=== PATIENT | female | born 1940 | race Caucasian/White ===

== ENCOUNTER → 2023-12-01 12:45 | Outpatient (REF) | payer OTHER, SELFPAY | LOC: WDC 12:45 | PROVIDERS: ATTENDING PHYSICIAN Family Medicine | DX: Z12.31 Encounter for screening mammogram for malignant neoplasm of breast (principal) | CPT/HCPCS: 77063; 77067 ==

== ENCOUNTER → 2024-06-07 08:01 | Outpatient (REF) | payer OTHER, SELFPAY | LOC: RCS 08:01 | PROVIDERS: ATTENDING PHYSICIAN Internal Medicine; FAMILY PHYSICIAN Family Medicine; REFERRING PHYSICIAN Obstetrics & Gynecology Gynecologic Oncology | DX: I47.10 Supraventricular tachycardia, unspecified (principal); R00.2 Palpitations | CPT/HCPCS: 93225; 93226 ==

== ENCOUNTER 2024-10-10 10:33 | Inpatient (IN) | payer OTHER, SELFPAY ==
[2024-10-07 12:46] VITALS: BP 135/59
--- NOTE | 2024-10-07 16:44 | ED.GENMED ---
History of Present Illness
<Lisette Boyle PA-C - Last Filed: 10/07/24 22:28>
General
Chief Complaint: Back Pain
Source: patient
Exam Limitations: none
Time Seen by Provider: 10/07/24 16:42
Nursing documentation reviewed up to this point in time: agreed with
History of Present Illness
History of Present Illness:
83-year-old female with past medical history of ovarian cancer currently receiving chemotherapy, PE on Eliquis, presents emergency department today with 2 weeks of low back pain radiating into the buttocks and each leg. Patient reports that this
started 2 weeks ago and was sudden onset upon awakening in the morning. Patient reports over the past 2 weeks, she has had increasing difficulty with ambulating and reports that she can barely walk without severe pain. She is present in the ER
with her friend. She reports that she lives alone and she has story house and can barely take care of herself at home with her pain. She denies any recent falls or trauma to the area. She denies any chest pain or shortness of breath. She denies
any syncopal episodes. Denies any abdominal pain. She denies any fevers or chills, genital paresthesias, loss of bowel or bladder.
Review of Systems
<Lisette Boyle PA-C - Last Filed: 10/07/24 22:28>
Review of Systems
All Other Systems: ROS reviewed and negative except as documented in HPI and ROS
Phy Exam
<Lisette Boyle PA-C - Last Filed: 10/07/24 22:28>
Physical Exam
Physical Exam:
General: Patient is well appearing and in no acute distress; non-toxic
Skin: Warm and dry, no rashes or lesions
Head: Normocephalic, atraumatic
Eyes: Sclera non-icteric. EOMs intact.
Cardiac: Regular rate and rhythm, no murmurs
Peripheral Vascular: No lower extremity swelling or edema
Pulm: Normal respiratory effort
Abdomen: No abdominal tenderness to palpation
Musculoskeletal: No midline spinal tenderness to palpation. Patient unable to ambulate or sit up without significant pain. Minimal pain at rest. Positive straight leg raise bilaterally. Limited hip flexion bilaterally.
Neuro: CN II-XII intact, no focal neurologic deficits. Sensation intact bilaterally.
Psychiatric: Appropriate mood and affect.
Course
<Lisette Boyle PA-C - Last Filed: 10/07/24 22:28>
Orders/Labs/Results
Orders:
Orders
10/07/24 17:27
CT Lumbar Spine W/o Iv Contras Urgent
Comment:
Reason For Exam: low back pain, hx of ovariancancer, unable to walk
10/07/24 17:39
Acetaminophen [Tylenol] 1,000 mg PO NOW STA
10/07/24 20:48
Urinalysis Reflex To Culture Urgent
Date Specimen was Collected: 10/07/24
Time Specimen was Collected: 20:45
10/07/24 21:46
Complete Blood Count/With Diff Urgent
Comprehensive Metabolic Panel Urgent
10/07/24 21:56
Atorvastatin [Lipitor] 10 mg PO NOW STA
Gabapentin [Neurontin] 100 mg PO NOW STA
10/07/24 22:00
Apixaban [Eliquis] 5 mg PO BID
10/07/24 23:00
Atenolol [Tenormin] 25 mg PO ONCE ONE
10/08/24 08:00
Atenolol [Tenormin] 25 mg PO DAILY
Vital Signs
Initial and Last Documented VS:
Initial Vital Signs
Temp Pulse Resp BP Pulse Ox
98.2 F 65 16 135/59 100
10/07/24 12:46 10/07/24 12:46 10/07/24 12:46 10/07/24 12:46 10/07/24 12:46
Last Documented Vital Signs
Temp Pulse Resp BP Pulse Ox
98.2 F 59 18 125/46 96
10/07/24 12:46 10/07/24 19:04 10/07/24 19:04 10/07/24 19:04 10/07/24 19:04
<Shamar Dale, DO - Last Filed: 10/07/24 21:55>
Orders/Labs/Results
Orders:
Orders
10/07/24 17:27
CT Lumbar Spine W/o Iv Contras Urgent
Comment:
Reason For Exam: low back pain, hx of ovariancancer, unable to walk
10/07/24 17:39
Acetaminophen [Tylenol] 1,000 mg PO NOW STA
10/07/24 20:48
Urinalysis Reflex To Culture Urgent
Date Specimen was Collected: 10/07/24
Time Specimen was Collected: 20:45
10/07/24 21:46
Complete Blood Count/With Diff Urgent
Comprehensive Metabolic Panel Urgent
10/07/24 21:56
Atorvastatin [Lipitor] 10 mg PO NOW STA
Gabapentin [Neurontin] 100 mg PO NOW STA
10/07/24 22:00
Apixaban [Eliquis] 5 mg PO BID
10/07/24 23:00
Atenolol [Tenormin] 25 mg PO ONCE ONE
10/08/24 08:00
Atenolol [Tenormin] 25 mg PO DAILY
Vital Signs
Initial and Last Documented VS:
Initial Vital Signs
Temp Pulse Resp BP Pulse Ox
98.2 F 65 16 135/59 100
10/07/24 12:46 10/07/24 12:46 10/07/24 12:46 10/07/24 12:46 10/07/24 12:46
Last Documented Vital Signs
Temp Pulse Resp BP Pulse Ox
98.2 F 59 18 125/46 96
10/07/24 12:46 10/07/24 19:04 10/07/24 19:04 10/07/24 19:04 10/07/24 19:04
<Lisette Boyle PA-C - Last Filed: 10/07/24 22:28>
MDM/Problems Addressed
Differential Diagnosis Includes:
Bony metastasis, paralumbar sprain, compression fracture, degenerative disc disease, herniated nucleus pulposus
MDM/Problems Addressed:
83-year-old female presents emergency department today with lower back pain for the past 2 weeks. She history of ovarian cancer. She is unable to ambulate without significant pain. She states that this gotten to the point where she is unable to
take care of herself at home. She lives alone in a two-story house. Will admit for further pain control and PT eval and case management evaluation. Case discussed with hospitalist.
Chronic conditions affecting care:
ovarian cancer
<Lisette Boyle PA-C - Last Filed: 10/07/24 22:28>
*Pulse Oximetry
Patient hypoxic: no
*Critical Care Note
Total Time (30-74mins, 75-104mins- exclusive of procedures): Not Applicable
Data Reviewed
Review of Other/Old Records Reveals: Records (no previous ER physician documentation or discharge summaries to review )
Source: patient and records
Prescriptions/Medications Considered But Not Given:
n/a
<Lisette Boyle PA-C - Last Filed: 10/07/24 22:28>
Patient Management
Escalation/DeEscalation of care consider admission/obs:
patient referred for admission
ED Attending Note
<Lisette Boyle PA-C - Last Filed: 10/07/24 22:28>
-
Portions of this chart may have been created with voice recognition software.� Occasional wrong word or��sound alike� substitutions may have occurred due to the inherent limitations of voice recognition software.
<Shamar Dale DO - Last Filed: 10/07/24 21:55>
ED Attending Note
Patient seen and examined by attending physician: Yes
I performed the substantive portion of visit, reviewed & personally made and approve the management plan that is documented in note by myself or CHERELLE.: Yes
ED Attending Note:
83-year-old female presents with low back pain. Patient has had spine surgery in the past. States she just developed about 2 weeks ago and worsened. Today she could not really get out of bed. She does report chronic neuropathy in her lower
extremities but feels like it is worse. Patient denies bladder or urinary incontinence. She denies any anesthesia to the pelvic area. She does report some pain into her buttocks. She also reports pain down into the left leg is little worse. No
fevers. No vomiting. Exam: Awake and alert, normal bilateral lower extremity perfusion. No edema. Able to lift both legs off the bed. Normal gross sensation to palpation. Assessment and plan: Unable to walk in the emergency department. CT
shows chronic degenerative changes. Check basic labs and admit. Likely will need rehab. Patient lives alone and is unsafe to be at home as she is unable to walk. May need MRI. No clinical concern for cauda equina syndrome during my evaluation
Discharge Plan
Departure
Patient Disposition: Admit
Date of Disposition: 10/07/24
Time of Disposition: 22:28
Admit to: Med/Surg
Presentation/result/management discussed w/ accepting MD/DO: Hospitalist
Patient with high blood pressure during this ER visit?: Yes
Discharge Problem:
Ambulatory dysfunction, Low back pain
Prescriptions:
No Action
multivitamin Tablet
1 tab PO DAILY
atorvastatin 10 mg Tablet
10 mg PO DAILY
atenolol 25 mg Tablet
25 mg PO DAILY
calcium carbonate-vitamin D3 [Calcium + D] 600 mg-5 mcg (200 unit) Tablet
1 tab PO DAILY
tramadol 50 mg Tablet
50 mg PO Q8 PRN (Reason: pain)
digoxin 125 mcg (0.125 mg) Tablet
125 mcg PO QMWF
gabapentin 100 mg Capsule
100 mg PO BID
Vitamin B-6 50 mg Capsule
50 mg PO DAILY
Eliquis 5 mg Tablet
5 mg PO BID
Referrals:
Lina Cabrera MD [Family Provider] -
Interventions
Interventions:
*Risk Screen - Suicide Last Done: 10/07/24 12:46
*General Assessment Last Done: 10/07/24 12:46
*Neglect/Abuse Screening Last Done: 10/07/24 12:46
ED- Fall Risk Assessment Last Done: 10/07/24 17:45
*ED COVID-19 Vaccine History Last Done: 10/07/24 12:46
ED-Musculoskeletal Assessment Last Done: 10/07/24 17:45
Discharge Date and Time
Print Language: CROATIAN
[2024-10-07] MEDS: TYLENOL 1000 MG PO (17:45)
[2024-10-07 19:04] VITALS: BP 125/46
[2024-10-07 21:13] LABS: Urine Albumin Negative (Neg - Trace); Urine Bilirubin Negative (Negative); Urine Character Clear (Clear); Urine Color Yellow; Urine Glucose Negative (Negative); Urine Ketone Negative (Negative); Urine Leukocyte Negative (Negative); Urine Nitrite Negative (Negative); Urine Occult Blood Negative (Negative); Urine Urobilinogen Negative (Neg - 1+)
[2024-10-07 22:38] VITALS: BP 153/56
[2024-10-07] MEDS: NEURONTIN 100 MG PO ×2 (22:39→22:49)
[2024-10-07] MEDS: LIPITOR 10 MG PO (22:39)
[2024-10-07] MEDS: TENORMIN 25 MG PO (22:40)
[2024-10-07] MEDS: ELIQUIS 5 MG PO (22:40)
--- NOTE | 2024-10-07 23:39 | HPS.HSE ---
Family Physician
-
Family Physician: Lina Cabrera MD
Chief Complaint
-
Acute episode of back pain x 2 weeks
History of Present Illness
This is a 83-year-old female with past medical history significant for metastatic ovarian cancer status post of surgical resection of left ovary and radiation, status post of chemo now temporarily of chemotherapy who presents to the emergency
department with dull worsening lower back pain.
Patient reported sudden onset of back pain upon arousal from sleep 2 weeks ago. Initially she was able to tolerate the pain. She reports that it is localized to the low back just above the hips bilaterally. She denies any radiation down the legs.
She denies any incontinence of the bladder or bowel. She denies any urinary symptoms otherwise such as dysuria or frequency.
Patient denies any antecedent trauma.
Patient reports pain worse with standing and ambulation. Occasionally she can find a sitting position that does reduce the pain. Due to the number of stairs in the house she has difficulty ambulating. The patient stated that the pain became
intolerable enough today that she did come to the hospital. It is associated with the worsening of her neuropathy and she reports radiation of neuropathic pain up the left calf. She denies any lower extremity swelling.
In the emergency department she was afebrile, blood pressure was 150/50 with a pulse of 50 and satting 95% on room air. Patient had a CT of the lumbar spine which showed an age-indeterminate mild L5 compression fracture which was new compared to
prior (2021). Labs pending.
Medical History
Past Medical History
Past Medical History: Reports None, Asthma, Cancer (ovarian cancer), HTN and Hypercholesterolemia
Past Surgical History: Reports Gynocological (Ovarian cancer removed on left ovary 12/2021 ), Orthopedic (back surgery ) and Tonsilectomy
Social History
Tobacco: Non-smoker
Alcohol: None
Drug: None
Personal: Single
Living: Alone
Employment: Retired
Family History
Family History: Not pertinent
Allergies / Home Medications
Allergies reflects when Allergies were last updated in [employer].
Home Medications with original date entered in [employer]
Allergy/Medication List:
Allergies
Allergy/AdvReac Type Severity Reaction Status Date / Time
No Known Allergies Allergy Verified 10/07/24 22:45
Home Medications
apixaban 5 mg tablet (Eliquis) 5 mg PO BID 10/07/24
atenolol 25 mg tablet 25 mg PO DAILY 10/07/24
atorvastatin 10 mg tablet 10 mg PO DAILY 10/07/24
calcium 600 mg (as carbonate)-vitamin D3 5 mcg (200 unit) tablet 1 tab PO DAILY 10/07/24
digoxin 125 mcg (0.125 mg) tablet 125 mcg PO QMWF 10/07/24
gabapentin 100 mg capsule 200 mg PO BID 10/07/24
multivitamin 1 tab PO DAILY 10/07/24
pyridoxine (vitamin B6) 50 mg capsule (Vitamin B-6) 50 mg PO DAILY 10/07/24
tramadol 50 mg tablet 50 mg PO Q8 PRN pain 10/07/24
Review of Systems
-
History Source: Patient
Constitutional: Reports No Symptoms
EENT: Reports No Symptoms
Respiratory: Reports No Symptoms
Cardiac: Reports No Symptoms
Abdomen/GI: Reports No Symptoms
: Reports No Symptoms
Musculoskeletal: Reports Joint Pain
Skin: Reports No Symptoms
Neurological: Reports No Symptoms
Endocrine: Reports No Symptoms
Hematologic/Lymphatic: Reports No Symptoms
Psych: Reports No Symptoms
Physical Exam
Vital Signs
Vital Signs
Temp Pulse Resp BP Pulse Ox
97.8 F 58 18 153/56 95
10/07/24 22:38 10/07/24 22:38 10/07/24 19:04 10/07/24 22:38 10/07/24 22:38
Physical Exam
General: Well Developed, Well Nourished and No Apparent Distress
HEENT: NormoCephalic, Anicteric and Moist mucous membranes
Respiratory: Clear
Cardiac: S1/S2 and Regular Rhythm
Breast: Deferred by me
GI: Soft, Non Tender, Non Distended and Normal Bowel Sounds
Genito-urinary: Deferred by me
Musculoskeletal: No Clubbing, No Cyanosis, No Edema and Other (back pain on straight leg raise on right but no radiation); No Normal Gait & Station
Skin: Warm
Neuro: AO x 3 and Nonfocal/grossly intact
Hematologic/Lymphatic: No Lymphadenopathy
Psych: Calm
Data Reviewed
-
CT Scan: Report Reviewed by me
Lab Data: Labs Reviewed by me
Old Records: Reviewed
Impression/Plan
-
IMPRESSION:
83-year-old with past medical history of metastatic ovarian cancer status post ovarian surgery, radiation and chemotherapy with resultant peripheral neuropathy, atrial fibrillation on apixaban, hypertension, hyperlipidemia, presenting to the
emergency department with back pain and worsening peripheral neuropathy. Found to have a subacute mild L5 compression fracture. No trauma.
PLAN:
1. Back pain - MSK back pain. No sciatica. No alarm signs. Ambulatory difficulties at home as she lives alone and has to go up 2 flights of stairs
- admit to med/surg observation
- analgesics - starting with tylenol RTC, prn tramadol and iv dilaudid for severe pain
- topical lidocaine, flexeril for spams
- PT evaluation and possible SNF/Rehab
2. AFIB
- continue atenolol and digoxin
- continue apixaban
3. Neuropahty
- coninue B6 and gabapentin
DVT PPX - on apixaban
Code status - DNR
[2024-10-08] VITALS (7 sets, daily range): BP systolic 121–144; BP diastolic 54–74; PULSE 59; O2SAT 97; BMI 26.5; BMI 25.2
[2024-10-08] MEDS: TYLENOL 650 MG PO ×3 (00:28→12:18)
[2024-10-08] MEDS: LIDOCAINE 4% PATCH 1 PATCH TOPICAL (01:59)
[2024-10-08 02:15] LABS: % Basophils 0.5 % (0-2); % Eosinophils 1.3 % (0-6); % Immature Granulocytes 1.3 % (0-0.5); % Lymphocytes 13.8 % (20.5-51.1); % Neutrophils 72.1 % (42.2-75.2); Absolute Eosinophils 0.1 10^3/uL (0-0.7); Absolute Immature Granulocytes 0.1 10^3/uL (0-0.05); Absolute Lymphocytes 0.6 10^3/uL (1.2-3.4); Absolute Monocytes 0.4 10^3/uL (0.1-0.6); Absolute Neutrophils 2.9 10^3/uL (1.4-6.5); Hematocrit 27.8 % (37.0-47.0); Hemoglobin 9.1 g/dL (12.0-16.0); Mean Corp Hgb Conc. 32.7 g/dL (33.0-37.0); Mean Corpuscular Hgb 33.6 pg (27.0-31.0); Mean Corpuscular Volume 102.6 fL (81.0-99.0); Mean Platelet Volume 8.9 fL (7.4-10.4); Nucleated Red Blood Cells % 0 %; Platelet Count 187 10^3/uL (130-400); Red Blood Cell Count 2.71 10^6/uL (4.20-5.40); Red Cell Dist. Width 13.9 % (11.5-14.5)
[2024-10-08 02:21] LABS: ALT (SGPT) 14 U/L (0-35); AST (SGOT) 16 U/L (14-36); Albumin 3.1 g/dl (3.5-5.0); Alkaline Phosphatase 125 U/L (38-126); Blood Urea Nitrogen 12 mg/dl (7-17); Calcium 8.6 mg/dl (8.4-10.2); Carbon Dioxide 30 mmol/L (22-30); Chloride 103 mmol/L (98-107); Estimated Creatinine Clearance 58 ml/min; Glucose 106 mg/dl (70-99); Potassium 3.9 mmol/L (3.5-5.1); Sodium 136 mmol/L (135-145); Total Protein 5.5 g/dl (6.3-8.2); eGFR > 60.00
[2024-10-08] MEDS: TENORMIN 25 MG PO (08:08)
[2024-10-08] MEDS: OSCAL 500 + D 500 MG PO (08:10)
[2024-10-08] MEDS: THERAGRAN 1 TABLET PO (08:10)
[2024-10-08] MEDS: ELIQUIS 5 MG PO ×2 (08:10→21:51)
[2024-10-08] MEDS: LIPITOR 10 MG PO (08:11)
[2024-10-08] MEDS: NEURONTIN 200 MG PO ×3 (08:11→23:23)
[2024-10-08 11:28] LABS: Iron 56 ug/dl (37-170)
[2024-10-08 11:36] LABS: Percent Saturation 29 % (20-50); Total Iron Binding Capacity 191 ug/dl (265-497)
[2024-10-08 12:17] LABS: Vitamin B12 275 pg/ml (239-931)
--- NOTE | 2024-10-08 15:20 | W.PN.HOSP.TC ---
Today's Communication/Plan
-
Pain control
PT OT
Change Gabapentin to 200 mg Q8H
Assessment / Plan
Assessment / Plan
83-year-old female with back pain. Patient has a history of ovarian cancer receiving chemotherapy pain has been ongoing for about 2 weeks but got worse. No trauma. Patient was diagnosed
CT of the lumbar azceg-hkw-ihqyrifvlwtua L5 compression fracture. Mild lumbar spinal levoscoliosis. L2/3 subluxation. Multilevel DJD. Progression of canal stenosis L5/S1. New moderate left hydronephrosis and new moderate left hydroureter
secondary to compressing left pelvic cystic mass.
Awake alert oriented
Cardiovascular system S1-S2 appreciated
No point tenderness in the spine pain mostly in the lower lumbar/sacral area
# Back pain-acute on chronic
Pain control
Patient was on tramadol 50 mg every 8h and gabapentin 200 mg p.o. twice daily as outpatient, Tylenol, lidocaine patch
# New moderate left hydroureter and left hydronephrosis
Likely secondary to malignancy related obstruction
Patient states that she had a CAT scan on August 13, 2024.
She has seen Dr. Trevino and since her kidney function was okay he did not want any further interventions for this.
# Metastatic ovarian cancer. She follows up with Dr. Molina at [place]
Urgently diagnosed in 2021 had hysterectomy and 6 cycles of chemo. She was deemed 'cancer free' in 2022. Recurrence December 2023, chemotherapy and radiation were started. Last chemotherapy was in August 2024. Now she is not on treatment
currently.
# Anemia -likely related to malignancy
# hypertension-continue atenolol
# Hyperlipidemia-continue statin
# History of PE-continue Eliquis
# Hiatal hernia
# Cholelithiasis
# DVT prophylaxis-Eliquis
# DNR per patient preference
I made patient aware that she should keep all her care in one system for best care. We do not have any of her records and she does not have [employer] on her phone from [employer]. Will try and get records from [place], Dr. Trevino and Dr. Braga.
Anticipated Discharge: 24 - 48 hours
Subjective/Interval History
-
Date of Service: October 08, 2024
Objective Data
-
Vital Signs:
Vital Signs
Temp Pulse Resp BP Pulse Ox
98.2 F 54 16 134/54 97
10/08/24 07:15 10/08/24 08:08 10/08/24 07:15 10/08/24 08:08 10/08/24 08:30
[2024-10-08] MEDS: TYLENOL 1000 MG PO ×2 (16:44→23:24)
[2024-10-08] MEDS: LIDOCAINE 4% PATCH TOPICAL (21:51)
[2024-10-09] MEDS: ULTRAM 50 MG PO (05:25)
[2024-10-09 05:36] LABS: Hematocrit 28.2 % (37.0-47.0); Mean Corp Hgb Conc. 31.9 g/dL (33.0-37.0); Mean Corpuscular Hgb 33.2 pg (27.0-31.0); Mean Corpuscular Volume 104.1 fL (81.0-99.0); Mean Platelet Volume 8.8 fL (7.4-10.4); Platelet Count 177 10^3/uL (130-400); Red Blood Cell Count 2.71 10^6/uL (4.20-5.40); Red Cell Dist. Width 13.8 % (11.5-14.5); White Blood Cell Count 4.3 10^3/uL (4.8-10.8)
[2024-10-09 06:00] LABS: Blood Urea Nitrogen 18 mg/dl (7-17); Carbon Dioxide 28 mmol/L (22-30); Chloride 104 mmol/L (98-107); Estimated Creatinine Clearance 58 ml/min; Glucose 102 mg/dl (70-99); Sodium 139 mmol/L (135-145); eGFR > 60.00
[2024-10-09] MEDS: NEURONTIN 200 MG PO ×3 (07:37→23:01)
[2024-10-09] MEDS: ELIQUIS 5 MG PO ×2 (07:37→20:04)
[2024-10-09] MEDS: LIPITOR 10 MG PO (07:37)
[2024-10-09] MEDS: TENORMIN 25 MG PO (07:38)
[2024-10-09] MEDS: TYLENOL 1000 MG PO ×3 (07:38→23:02)
[2024-10-09] MEDS: VITAMIN B-12 1000 MCG PO (07:38)
[2024-10-09] MEDS: OSCAL 500 + D 500 MG PO (07:38)
[2024-10-09] MEDS: THERAGRAN 1 TABLET PO (07:38)
[2024-10-09 07:40] VITALS: BP 128/53
[2024-10-09] MEDS: LANOXIN 125 MCG PO (07:41)
[2024-10-09] MEDS: LIDOCAINE 4% PATCH 1 PATCH TOPICAL (08:35)
--- NOTE | 2024-10-09 13:05 | CM ---
Addend[facility] 10/09/24 15:01:
Call from friend who is bedside/Alexandria Lilly
Reviewed PAC with pt and requesting referrals to [facility] and [facility]
Aware limited SNF bed availability recently, in agreement to expand SNF bed search
PASRR completed and referrals sent via [facility]
Addendum [facility] 10/09/24 13:21:
KATZ verbally reviewed- copy provided
Original Note:
CM met with pt bedside
Pt noting pain and nausea and limited conversation
Per PT eval, pt resides alone in a 2SH home, uncertain of BEN
Eval noted 1 step up/down throughout home
Pt is typically indep with her ADLs with ADs
She has a cane and WW for use as needed
Pt noted she current outpt chemo/cancer treatments at this time
PCP- Lina Cabrera
Rx- [facility]
Pt eval with [facility]N vs SNF recs however pt noted to a 1 assist and ambulation limited in assessment
Pt requesting SNF be arranged on dc
PAC left bedside- pt will review and follow up with CM on SNF choices
OT eval requested
Discharge Disposition- SNF pending auth
[2024-10-09] MEDS: ZOFRAN 4 MG IV (13:06)
[2024-10-09] MEDS: ANTIVERT 25 MG PO (15:24)
[2024-10-09] MEDS: COMPAZINE 5 MG IV (15:24)
[2024-10-09 15:30] VITALS: BP 147/73
--- NOTE | 2024-10-09 15:54 | W.PN.HOSP.TC ---
Today's Communication/Plan
-
Case management to look for a rehab
Assessment / Plan
Assessment / Plan
83-year-old female with back pain. Patient has a history of ovarian cancer receiving chemotherapy pain has been ongoing for about 2 weeks but got worse. No trauma. Patient was diagnosed
CT of the lumbar pilvt-aps-yjijjubesepwa L5 compression fracture. Mild lumbar spinal levoscoliosis. L2/3 subluxation. Multilevel DJD. Progression of canal stenosis L5/S1. New moderate left hydronephrosis and new moderate left hydroureter
secondary to compressing left pelvic cystic mass.
Awake alert oriented
Cardiovascular system S1-S2 appreciated
No point tenderness in the spine pain mostly in the lower lumbar/sacral area
# Back pain-acute on chronic
Pain control
Patient was on tramadol 50 mg every 8h and gabapentin 200 mg p.o. twice daily as outpatient, Tylenol, lidocaine patch
Patient had slight dizziness and nausea which she is not sure if secondary to tramadol therefore does not want to take. She is also skeptical about opiates. Tramadol discontinued
Her pain is mostly in the sacrococcygeal area also
Get MRI of the lumbar spine including sacrum and coccyx requested
I spoke to Dr. Molina who is her oncologist-he stated that she had a CT of the abdomen and pelvis she does have some presacral area disease but has been stable. [place] nephrosis is stable. CT was on August 15, 2025. He saw her on August 27,
2024.
# New moderate left hydroureter and left hydronephrosis
Likely secondary to malignancy related obstruction
Patient states that she had a CAT scan on August 13, 2024.
She has seen Dr. Trevino and since her kidney function was okay he did not want any further interventions for this.
Text message to Dr. Trevino who confirms that the hydronephrosis is not new and as long as the creatinine is stable no further interventions.
# Nausea/vertigo-as needed Compazine and meclizine
# Metastatic ovarian cancer. She follows up with Dr. Molina at [place]
Urgently diagnosed in 2021 had hysterectomy and 6 cycles of chemo. She was deemed 'cancer free' in 2022. Recurrence December 2023, chemotherapy and radiation were started. Last chemotherapy was in August 2024. Now she is not on treatment
currently.
# Anemia -likely related to malignancy
# hypertension-continue atenolol
# Hyperlipidemia-continue statin
# History of PE-continue Eliquis
# Hiatal hernia
# Cholelithiasis
# DVT prophylaxis-Eliquis
# DNR per patient preference
I made patient aware that she should keep all her care in one system for best care. We do not have any of her records and she does not have [employer] on her phone from [employer]. Will try and get records from [place], Dr. Trevino and Dr. Braga.
Dr. Molina said that he will fax me his notes and CAT scan I still have not received it.
Discussed with patient's friend at bedside who is her advocate.
Discussed with nursing at bedside
time spent over 50 min
Anticipated Discharge: Within 24 hours
Subjective/Interval History
-
Date of Service: October 09, 2024
Objective Data
-
Labs:
Laboratory Results
10/09/24
05:21
WBC 4.3 L
Hgb 9.0 L
Hct 28.2 L
Plt Count 177
Sodium 139
Potassium 4.0
Chloride 104
Carbon Dioxide 28
BUN 18 H
Creatinine 0.7
Glucose 102 H
Calcium 8.0 L
Vital Signs:
Vital Signs
Temp Pulse Resp BP Pulse Ox
97.3 F 66 16 128/53 93
10/09/24 07:40 10/09/24 07:41 10/09/24 07:40 10/09/24 07:40 10/09/24 12:35
I&O
10/08/24 10/09/24 10/10/24
06:59 06:59 06:59
Intake Total 840 / 840
Balance 840 / 840
--- NOTE | 2024-10-09 16:18 | PTCARENOTE ---
Patient with complaints of 'head spinning' and nausea. Given Zofran without relief. MD contacted. Meclizine and Compazine given as ordered. Patient states that nausea and head issue feel slightly better. EKG completed. MRI of spine pending.
[2024-10-09 23:56] VITALS: BP 138/65
[2024-10-10 05:43] LABS: Hematocrit 30.2 % (37.0-47.0); Hemoglobin 9.5 g/dL (12.0-16.0); Mean Corp Hgb Conc. 31.5 g/dL (33.0-37.0); Mean Corpuscular Hgb 33.1 pg (27.0-31.0); Mean Corpuscular Volume 105.2 fL (81.0-99.0); Mean Platelet Volume 8.9 fL (7.4-10.4); Platelet Count 206 10^3/uL (130-400); Red Blood Cell Count 2.87 10^6/uL (4.20-5.40); Red Cell Dist. Width 13.5 % (11.5-14.5); White Blood Cell Count 3.9 10^3/uL (4.8-10.8)
[2024-10-10 05:59] LABS: Blood Urea Nitrogen 18 mg/dl (7-17); Calcium 8.5 mg/dl (8.4-10.2); Carbon Dioxide 30 mmol/L (22-30); Chloride 102 mmol/L (98-107); Estimated Creatinine Clearance 51 ml/min; Glucose 88 mg/dl (70-99); Potassium 4.2 mmol/L (3.5-5.1); Sodium 138 mmol/L (135-145); eGFR > 60.00
[2024-10-10 07:45] VITALS: BP 120/49
[2024-10-10] MEDS: LIDOCAINE 4% PATCH 1 PATCH TOPICAL (07:47)
[2024-10-10] MEDS: LIPITOR 10 MG PO (07:48)
[2024-10-10] MEDS: ELIQUIS 5 MG PO ×2 (07:49→21:38)
[2024-10-10] MEDS: THERAGRAN 1 TABLET PO (07:49)
[2024-10-10] MEDS: TYLENOL 1000 MG PO ×3 (07:49→23:47)
[2024-10-10] MEDS: OSCAL 500 + D 500 MG PO (07:49)
[2024-10-10] MEDS: TENORMIN 25 MG PO (07:49)
[2024-10-10] MEDS: NEURONTIN 200 MG PO ×3 (07:49→23:47)
[2024-10-10] MEDS: VITAMIN B-12 1000 MCG PO (07:49)
[2024-10-10 11:34] VITALS: BP 114/68; BP 121/66; PULSE 97; O2SAT 97
--- NOTE | 2024-10-10 12:41 | CM ---
Addendum entered by Maria Elena Ruiz 10/10/24 15:35:
CM reviewed SNF referrals w/ pt at bedside. CM reviewed facilities that are willing to accept her and facilities that do not have any bed availability today. Pt had preferences for [facility], [facility], [facility] or [facility]. CM informed that those facilities
do not have any bed availability today and if she is willing to explore some other facilities that have accepted her.
Pt asked about [facility]. CM spoke w/ Kamini in admissions and was informed facility is full and no beds are available today.
Pt became agreeable to [facility]- Per [facility]/admissions, there are no beds until tomorrow
Per [facility] admissions, may have a bed available tomorrow
Pt will need insurance auth
Plan: SNF (prefers [facility]); pending confirmation of bed tomorrow and auth
Original Note:
Pt LOC changed to IP today
[2024-10-10 15:35] VITALS: BP 113/71
--- NOTE | 2024-10-10 15:40 | W.PN.HOSP.TC ---
Today's Communication/Plan
-
Medically stable for discharge to rehab
Assessment / Plan
Assessment / Plan
83-year-old female with back pain. Patient has a history of ovarian cancer receiving chemotherapy pain has been ongoing for about 2 weeks but got worse. No trauma. Patient was diagnosed
CT of the lumbar umidf-wzj-znpxhhdoqzxsp L5 compression fracture. Mild lumbar spinal levoscoliosis. L2/3 subluxation. Multilevel DJD. Progression of canal stenosis L5/S1. New moderate left hydronephrosis and new moderate left hydroureter
secondary to compressing left pelvic cystic mass.
Awake alert oriented
Cardiovascular system S1-S2 appreciated
point tenderness in the spine pain mostly in the lower lumbar/sacral area
No neurodeficits

MRI
-1. SEVERE ACUTE BILATERAL SACRAL INSUFFICIENCY FRACTURES surrounded by severe bone marrow edema.
2. ACUTE INFERIOR ENDPLATE FRACTURE of L5 with mild to moderate loss of vertebral body height.
3. SEVERE CENTRAL CANAL STENOSIS at L4/L5 and L5/S1 which has increased at both levels since 12/12/2020.
4. SEVERE 1.8 cm LEFT LATERAL LISTHESIS of L2 on L3 and severe discogenic degenerative disease at L2/L3 which appears unchanged.
5. SEVERE LEFT HYDROURETERONEPHROSIS secondary to a large 7.8 cm obstructing cystic mass in the left side of the pelvis (probably LEFT OVARIAN CANCER).
6. Large amount of edema in the posterior lower lumbar paraspinal muscles and in the parapelvic muscles around the acute sacral fractures.
7. Previous bilateral posterior osseous fusion in throughout the thoracic spine.

# Back pain-acute on chronic secondary to sacral insufficiency fracture, L5 fracture, canal stenosis L5-S1 and L4-L5 and also DDD L2-L3
Discussed this with patient and friends at bedside
Pain control
Patient was on tramadol 50 mg every 8h and gabapentin 200 mg p.o. twice daily as outpatient, Tylenol, lidocaine patch
Patient had slight dizziness and nausea which she is not sure if secondary to tramadol therefore does not want to take. She is also skeptical about opiates. Tramadol discontinued
Her pain is mostly in the sacrococcygeal area also
I spoke to Dr. Molina who is her oncologist-he stated that she had a CT of the abdomen and pelvis she does have some presacral area disease but has been stable. [place] nephrosis is stable. CT was on August 15, 2025. He saw her on August 27,
2024.
# New moderate left hydroureter and left hydronephrosis
Likely secondary to malignancy related obstruction
Patient states that she had a CAT scan on August 13, 2024.
She has seen Dr. Trevino and since her kidney function was okay he did not want any further interventions for this.
Text message to Dr. Trevino who confirms that the hydronephrosis is not new and as long as the creatinine is stable no further interventions.
# Nausea/vertigo-as needed Compazine and meclizine. Symptoms resolved. She is not sure if it was from tramadol. Tramadol was discontinued
# Metastatic ovarian cancer. She follows up with Dr. Molina at [place]
Urgently diagnosed in 2021 had hysterectomy and 6 cycles of chemo. She was deemed 'cancer free' in 2022. Recurrence December 2023, chemotherapy and radiation were started. Last chemotherapy was in August 2024. Now she is not on treatment
currently.
# Anemia -likely related to malignancy
# hypertension-continue atenolol
# Hyperlipidemia-continue statin
# History of PE-continue Eliquis
# Hiatal hernia
# Cholelithiasis
# DVT prophylaxis-Eliquis
# DNR per patient preference
I made patient aware that she should keep all her care in one system for best care. We do not have any of her records and she does not have [employer] on her phone from [employer]. Will try and get records from [place], Dr. Trevino and Dr. Braga.
Dr. Molina said that he will fax me his notes and CAT scan I still have not received it.
Discussed with patient's friend at bedside who is her advocate.
Discussed with nursing at bedside
Discussed with case management
time spent over 50 min
Anticipated Discharge: Within 24 hours
Subjective/Interval History
-
Date of Service: October 10, 2024
Objective Data
-
Labs:
Laboratory Results
10/10/24
04:53
WBC 3.9 L
Hgb 9.5 L
Hct 30.2 L
Plt Count 206
Sodium 138
Potassium 4.2
Chloride 102
Carbon Dioxide 30
BUN 18 H
Creatinine 0.8
Glucose 88
Calcium 8.5
Vital Signs:
Vital Signs
Temp Pulse Resp BP Pulse Ox
98.5 F 59 16 120/49 94
10/10/24 07:45 10/10/24 07:45 10/10/24 07:45 10/10/24 07:49 10/10/24 13:03
I&O
10/09/24 10/10/24 10/11/24
06:59 06:59 06:59
Intake Total 840 / 840 600 / 600
Balance 840 / 840 600 / 600
[2024-10-10 23:12] VITALS: BP 116/58
[2024-10-11 07:45] VITALS: BP 131/58
--- NOTE | 2024-10-11 09:30 | CM ---
Spoke w/ [facility], pt can be accepted today, a bed will be ready for her this afternoon.
RIAN called -ask blue to initiate auth. CM spoke w/ Darshana.
Auth approved beginning today, 10/11 w/ NRD 10/16
Auth ref # [id number]. Facility to call [phone] for review
Ambulance auth obtained. Ref # [id number]. Pt will have a co-pay of $240 per Darshana
RIAN updated [facility] w/ [facility] information, confirming transport will be arranged for this afternoon
Updated hospitalist
[facility]
Report: [phone]

Plan: [facility] via ambulance
[2024-10-11] MEDS: TYLENOL 1000 MG PO (10:29)
[2024-10-11] MEDS: OSCAL 500 + D 500 MG PO (10:29)
[2024-10-11] MEDS: NEURONTIN 200 MG PO (10:30)
[2024-10-11] MEDS: LIPITOR 10 MG PO (10:30)
[2024-10-11] MEDS: ELIQUIS 5 MG PO (10:30)
[2024-10-11] MEDS: VITAMIN B-12 1000 MCG PO (10:31)
[2024-10-11] MEDS: LIDOCAINE 4% PATCH 1 PATCH TOPICAL (10:31)
[2024-10-11] MEDS: TENORMIN 25 MG PO (10:31)
[2024-10-11] MEDS: LANOXIN PO (10:43)
--- NOTE | 2024-10-11 10:51 | W.PN.HOSP.TC ---
Today's Communication/Plan
-
dc to snf
Assessment / Plan
Assessment / Plan
83-year-old female with back pain. Patient has a history of ovarian cancer receiving chemotherapy pain has been ongoing for about 2 weeks but got worse. No trauma. Patient was diagnosed
CT of the lumbar jvulr-gko-ebqgkoxbhkvlr L5 compression fracture. Mild lumbar spinal levoscoliosis. L2/3 subluxation. Multilevel DJD. Progression of canal stenosis L5/S1. New moderate left hydronephrosis and new moderate left hydroureter
secondary to compressing left pelvic cystic mass.

MRI
-1. SEVERE ACUTE BILATERAL SACRAL INSUFFICIENCY FRACTURES surrounded by severe bone marrow edema.
2. ACUTE INFERIOR ENDPLATE FRACTURE of L5 with mild to moderate loss of vertebral body height.
3. SEVERE CENTRAL CANAL STENOSIS at L4/L5 and L5/S1 which has increased at both levels since 12/12/2020.
4. SEVERE 1.8 cm LEFT LATERAL LISTHESIS of L2 on L3 and severe discogenic degenerative disease at L2/L3 which appears unchanged.
5. SEVERE LEFT HYDROURETERONEPHROSIS secondary to a large 7.8 cm obstructing cystic mass in the left side of the pelvis (probably LEFT OVARIAN CANCER).
6. Large amount of edema in the posterior lower lumbar paraspinal muscles and in the parapelvic muscles around the acute sacral fractures.
7. Previous bilateral posterior osseous fusion in throughout the thoracic spine.

# Back pain-acute on chronic secondary to sacral insufficiency fracture, L5 fracture, canal stenosis L5-S1 and L4-L5 and also DDD L2-L3
Discussed this with patient and friends at bedside
Pain control
Patient was on tramadol 50 mg every 8h and gabapentin 200 mg p.o. twice daily as outpatient, Tylenol, lidocaine patch
Patient had slight dizziness and nausea which she is not sure if secondary to tramadol therefore does not want to take. She is also skeptical about opiates. Tramadol discontinued
Her pain is mostly in the sacrococcygeal area also
Dr CAIN spoke to Dr. Molina who is her oncologist-he stated that she had a CT of the abdomen and pelvis she does have some presacral area disease but has been stable. [place] nephrosis is stable. CT was on August 15, 2025. He saw her on
August 27, 2025.
# New moderate left hydroureter and left hydronephrosis
Likely secondary to malignancy related obstruction
Patient states that she had a CAT scan on August 13, 2024.
She has seen Dr. Trevino and since her kidney function was okay he did not want any further interventions for this.
Dr CAIN d/w Dr. Trevino who confirms that the hydronephrosis is not new and as long as the creatinine is stable no further interventions.
# Nausea/vertigo-as needed Compazine and meclizine. Symptoms resolved. She is not sure if it was from tramadol. Tramadol was discontinued
# Metastatic ovarian cancer. She follows up with Dr. Molina at [place]
Urgently diagnosed in 2021 had hysterectomy and 6 cycles of chemo. She was deemed 'cancer free' in 2022. Recurrence December 2023, chemotherapy and radiation were started. Last chemotherapy was in August 2024. Now she is not on treatment
currently.
# Anemia -likely related to malignancy
# hypertension-continue atenolol
# Hyperlipidemia-continue statin
# History of PE-continue Eliquis
# Hiatal hernia
# Cholelithiasis
# DVT prophylaxis-Eliquis
# DNR per patient preference
Dr. CASPER made patient aware that she should keep all her care in one system for best care. We do not have any of her records and she does not have [employer] on her phone from [employer]. Will try and get records from [place], Dr. Trevino and
[facility].
Dr. Molina said that he will fax me his notes and CAT scan I still have not received it.
More than 30 minutes spent in discharge including
Final examination of the patient
Summarizing hospital stay
Instructions for continuing care to all relevant caregivers
Preparation of discharge records, prescriptions, and referral forms
Total time spent (in minutes): 53
Anticipated Discharge: Today
Subjective/Interval History
-
Date of Service: October 11, 2024
sitting in chair feeling better
Objective Data
-
Vital Signs:
Vital Signs
Temp Pulse Resp BP Pulse Ox
98.3 F 59 18 131/58 96
10/11/24 07:45 10/11/24 07:45 10/11/24 07:45 10/11/24 07:45 10/11/24 07:45
I&O
10/10/24 10/11/24 10/12/24
06:59 06:59 06:59
Intake Total 600 / 600 960 / 960 180 / 180
Balance 600 / 600 960 / 960 180 / 180
Physical Exam
-
General: No Apparent Distress
HEENT: Normocephalic, Atraumatic and Moist Mucous Membranes
Respiratory: Non Labored Respirations; Negative Accessory Resp Muscle Use
Cardiac: S1/S2; Negative Murmur, Rub or Gallop
GI: Nondistended; Negative Organomegaly
Rectal: Deferred by Provider
Musculoskeletal: No Clubbing, No Cyanosis and No Edema
Skin: Negative Rash
Neuro: Awake, No Motor Deficits and Nonfocal/Grossly Intact
Psych: Calm
[2024-10-11] MEDS: THERAGRAN 1 TABLET PO (10:54)
--- NOTE | 2024-10-11 10:57 | W.DCSUMMARY ---
Discharge Summary
Discharge Data
Date of Admission: 10/10/24
Date of Discharge: 10/11/24
-
Pending Results: No
Hospital Course
83 female past medical history of metastasis ovarian cancer status post hysterectomy status post chemotherapy, anemia, hypertension hyperlipidemia, history of PE, hiatal hernia, gallstones who is presenting with significant back pain. Patient
underwent MRI of the lumbar spine which showed severe acute bilateral sacral insufficiency fracture surrounded by bone marrow edema. Acute inferior endplate fracture of L5. Severe central canal stenosis of L4/L5. Which is increased since 2020.
Patient also with severe left hydroureteronephrosis secondary to obstructing cystic mass in the left side of the pelvis. This was discussed to patient oncologist and urologist and it seems hydronephrosis is chronic and no acute interventions
required. Patient was hesitant to take any narcotics. Patient had episode of nausea and vertigo which resolved with Compazine and meclizine. Patient was eval by physical and Occupational Therapy. Plan to discharge to assisted facility and
follow-up with her outpatient oncologist upon discharge.
Discharge Plan
-
Patient Disposition: Assisted/SNF
Discharge Diagnosis/Procedures: acute on chronic secondary to sacral insufficiency fracture
L5 fracture
Lumbar radiculopathy
Nausea/vertigo
Condition: Fair
Diet: Regular
Activity: With assistance and As tolerated
Driving Restrictions: As prior to admission
Referrals:
Lina Cabrera MD [Family Provider] - in less than 1 week
Prescriptions:
New
lidocaine 4 % Adhesive Patch,Medicated
1 patch topical DAILY Qty: 10 0RF
Rx Instructions:
Lower back
acetaminophen [Tylenol Extra Strength] 500 mg Tablet
1,000 mg PO Q8H 7 Days Qty: 42 0RF
cyanocobalamin (vitamin B-12) 1,000 mcg Tablet
1,000 mcg PO DAILY Qty: 30 0RF
Continued
multivitamin Tablet
1 tab PO DAILY
atorvastatin 10 mg Tablet
10 mg PO DAILY
atenolol 25 mg Tablet
25 mg PO DAILY
calcium carbonate-vitamin D3 600 mg-5 mcg (200 unit) Tablet
1 tab PO DAILY
gabapentin 100 mg Capsule
200 mg PO BID
Vitamin B-6 50 mg Capsule
50 mg PO DAILY
Eliquis 5 mg Tablet
5 mg PO BID
digoxin 125 mcg (0.125 mg) Tablet
125 mcg PO QMWF Qty: 0 0RF
Rx Instructions:
Hold for HR<55
Discontinued
tramadol 50 mg Tablet
50 mg PO Q8 PRN (Reason: pain)
Discharge Orders:
Discharge Patient (As Directed); Ordered 10/11/24
Ordered By: Abel Lanier
Discharge Date and Time
Print Language: SLOVENIAN
[2024-10-11 11:41] VITALS: BP 115/62
== END 2024-10-11 15:16 | DRG 543 ==
LOC: 4 EAST ACU 10:33
PROVIDERS: Hospitalist; Physician Assistant; ADMITTING PHYSICIAN Internal Medicine; ATTENDING PHYSICIAN Hospitalist; EMERGENCY PHYSICIAN Emergency Medicine; FAMILY PHYSICIAN Family Medicine
DX: M84.48XA Pathological fracture, other site, initial encounter for fracture (principal); C56.9 Malignant neoplasm of unspecified ovary; N13.30 Unspecified hydronephrosis; G62.9 Polyneuropathy, unspecified; R26.2 Difficulty in walking, not elsewhere classified; M41.86 Other forms of scoliosis, lumbar region; M48.07 Spinal stenosis, lumbosacral region; E78.00 Pure hypercholesterolemia, unspecified; I10 Essential (primary) hypertension; M54.16 Radiculopathy, lumbar region; K44.9 Diaphragmatic hernia without obstruction or gangrene; K80.20 Calculus of gallbladder without cholecystitis without obstruction; D63.8 Anemia in other chronic diseases classified elsewhere; J45.909 Unspecified asthma, uncomplicated; I48.91 Unspecified atrial fibrillation; N94.89 Other specified conditions associated with female genital organs and menstrual cycle; Z66 Do not resuscitate; Z60.2 Problems related to living alone; Z85.43 Personal history of malignant neoplasm of ovary; Z92.21 Personal history of antineoplastic chemotherapy; Z86.711 Personal history of pulmonary embolism; Z79.01 Long term (current) use of anticoagulants; Z92.3 Personal history of irradiation
CPT/HCPCS: 72131; 72148; 80048; 80053; 81003; 82607; 82728; 83540; 83550; 85025; 85027; 93005; 96374; 97116; 97162; 97166; 97530; 99284

== ENCOUNTER → 2024-10-16 09:35 | Outpatient (REF) | payer OTHER, SELFPAY ==
[2024-10-16 11:16] LABS: Hematocrit 28.9 % (37.0-47.0); Hemoglobin 8.8 g/dL (12.0-16.0); Mean Corp Hgb Conc. 30.4 g/dL (33.0-37.0); Mean Corpuscular Hgb 32.4 pg (27.0-31.0); Mean Corpuscular Volume 106.3 fL (81.0-99.0); Mean Platelet Volume 9.3 fL (7.4-10.4); Platelet Count 180 10^3/uL (130-400); Red Blood Cell Count 2.72 10^6/uL (4.20-5.40); Red Cell Dist. Width 13.8 % (11.5-14.5); White Blood Cell Count 3.6 10^3/uL (4.8-10.8)
[2024-10-16 11:46] LABS: ALT (SGPT) 11 U/L (0-35); AST (SGOT) 16 U/L (14-36); Alkaline Phosphatase 130 U/L (38-126); Blood Urea Nitrogen 14 mg/dl (7-17); Calcium 8.6 mg/dl (8.4-10.2); Carbon Dioxide 28 mmol/L (22-30); Chloride 103 mmol/L (98-107); Glucose 86 mg/dl (70-99); Potassium 4.1 mmol/L (3.5-5.1); Sodium 138 mmol/L (135-145); Total Bilirubin 0.6 mg/dl (0.2-1.3); Total Protein 5.4 g/dl (6.3-8.2); eGFR > 60.00
== END ==
LOC: OLABWHC 09:35
PROVIDERS: ATTENDING PHYSICIAN Family Medicine
DX: S32.050D Wedge compression fracture of fifth lumbar vertebra, subsequent encounter for fracture with routine healing (principal); D64.9 Anemia, unspecified; I10 Essential (primary) hypertension
CPT/HCPCS: 36415; 80053; 83735; 85027

== ENCOUNTER → 2024-12-04 12:52 | Outpatient (REF) | payer OTHER, SELFPAY | LOC: WDC 12:52 | PROVIDERS: ATTENDING PHYSICIAN Nurse Practitioner Family; FAMILY PHYSICIAN Family Medicine | DX: Z12.31 Encounter for screening mammogram for malignant neoplasm of breast (principal) | CPT/HCPCS: 77063; 77067 ==

== ENCOUNTER 2025-06-25 18:10 | Observation (INO) | payer OTHER, SELFPAY ==
[2025-06-25] VITALS (13 sets, daily range): BP systolic 101–143; BP diastolic 66–79; BMI 24.3
--- NOTE | 2025-06-25 13:22 | ED.GENMED ---
History of Present Illness
General
Chief Complaint: Fall
Time Seen by Provider: 06/25/25 12:52
History of Present Illness
History of Present Illness:
84-year-old female with history of metastatic ovarian cancer, A-fib and PE on Eliquis, anemia, hyperlipidemia, hypertension, chronic low back pain and arthritis presenting to the emergency department with upper chest and rib pain after a fall.
Patient reports she fell a week ago getting out of her bed onto the commode, when her walker went underneath her. She notes she fell onto her bottom and left side. Denies head injury or loss of consciousness. Notes that she was doing okay as far
as pain with just Tylenol, however in the past 2 days has felt like the pain has worsened. Pain is in her left lower rib region and her upper back. She notes that today she had difficulty getting out of bed. Denies any fever. Notes that she
follows at [facility] for her oncologic care, is supposed to see them tomorrow for planning regarding treatment of her disease. No additional history obtained
Phy Exam
Physical Exam
Physical Exam:
General: Well-appearing, no clinical signs of dehydration, nontoxic and in no acute distress
HEENT: protecting airway
Neck: appears supple
CV: Normal heart rate, regular rhythm
Resp: No accessory muscle use, no increased work of breathing, lungs clear to auscultation bilaterally. Tenderness to the left anterior distal rib region without crepitus
Abd: Soft and non-distended, no tenderness to palpation.
Extremities: No deformities, no swelling. No midline spinal tenderness, with tenderness to the right and left paraspinal musculature
Neuro: alert, no focal neurologic deficit
: deferred
Rectal: deferred
Psych: Normal affect
Skin: Intact
Course
Orders/Labs/Results
Orders:
Orders
06/25/25 13:17
CT Chest W/o Iv Contrast Urgent
Comment:
Reason For Exam: fall, L-lower rib pain, R-upper thoracic pain
Oxycodone/Acetaminophen [Percocet 5/325] 1 tablet PO NOW STA
06/25/25 15:49
Case Management Consult ONCE
Case Management Consult: Discharge Planning
Physical Therapy Consult [Pt Eval And Treat] Urgent
Activity Level: Out of Bed-Early Mobility
06/25/25 15:50
Morphine Sulfate 4 mg IV NOW STA
06/25/25 16:08
Oxycodone/Acetaminophen [Percocet 5/325] 1 tablet PO NOW STA
06/25/25 16:27
Complete Blood Count/With Diff Urgent
Comprehensive Metabolic Panel Urgent
Abnormal Lab Results
06/25/25
16:27
RDW 14.6 H %
(11.5-14.5)
Absolute Lymphs (auto) 0.6 L 10^3/uL
(1.2-3.4)
Neutrophils % 81.4 H %
(42.2-75.2)
Lymphocytes % 10.5 L %
(20.5-51.1)
06/25/25 16:27
Vital Signs
Initial and Last Documented VS:
Initial Vital Signs
Temp Pulse Resp BP Pulse Ox
98.2 F 85 18 143/72 97
06/25/25 12:08 06/25/25 12:08 06/25/25 12:08 06/25/25 12:08 06/25/25 12:08
Last Documented Vital Signs
Temp Pulse Resp BP Pulse Ox
98.2 F 77 17 120/71 97
06/25/25 12:08 06/25/25 16:00 06/25/25 16:00 06/25/25 16:00 06/25/25 13:27
MDM/Problems Addressed
MDM/Problems Addressed:
84-year-old female with history of metastatic ovarian cancer, A-fib and PE on Eliquis, anemia, hyperlipidemia, hypertension, chronic low back pain and arthritis presenting for rib pain and back pain after a fall a week ago. Vital signs are normal.
On exam, patient is resting comfortably, no acute distress. No physical signs of trauma. Patient denies any head injury or loss of consciousness. No present indication for advanced head imaging. Primary location of pain appears to be left rib
region, inferiorly and anteriorly. No tenderness to the abdomen, soft and nondistended. Lungs clear to auscultation. Generalized tenderness to the right and left thoracic paraspinal musculature. No midline spinal tenderness. Given diffuse
nature of pain, will obtain CT chest imaging. Patient notes that Tylenol is not helping her pain. Will try Percocet for pain
16:00 -patient still having pain. Will escalate to morphine. CT shows a T7 fracture. CT also shows moderate left pelvicalyceal dilation, which is new compared to CT of the abdomen and pelvis from November 20, 2021. And recent admission in October
2024, it was noted that patient had severe left hydroureteronephrosis secondary to an obstructing cystic mass in the left side of the pelvis, chronic. Without present concern for acute nature.
16:50 - Patient seen by PT, unable to get out of bed. Patient also seen by case management. Recommendation at this time is for senior care facility, however admission for pain management followed by facility options.
*Pulse Oximetry
SaO2: 97
Oxygen Mode of Delivery: Room air
Patient hypoxic: no
*Critical Care Note
Total Time (30-74mins, 75-104mins- exclusive of procedures): Not Applicable
ED Attending Note
-
Portions of this chart may have been created with voice recognition software.� Occasional wrong word or��sound alike� substitutions may have occurred due to the inherent limitations of voice recognition software.
Discharge Plan
Departure
Prescriptions:
No Action
multivitamin Tablet
1 tab PO DAILY
atorvastatin 10 mg Tablet
10 mg PO DAILY
atenolol 25 mg Tablet
25 mg PO DAILY
calcium carbonate-vitamin D3 600 mg-5 mcg (200 unit) Tablet
1 tab PO DAILY
gabapentin 100 mg Capsule
200 mg PO DAILY
Vitamin B-6 50 mg Capsule
50 mg PO DAILY
Eliquis 5 mg Tablet
5 mg PO BID
acetaminophen [Tylenol Extra Strength] 500 mg Tablet
1,000 mg PO Q8H 7 Days Qty: 42 0RF
cyanocobalamin (vitamin B-12) 1,000 mcg Tablet
1,000 mcg PO DAILY Qty: 30 0RF
digoxin 125 mcg (0.125 mg) Tablet
125 mcg PO QMWF Qty: 0 0RF
Rx Instructions:
Hold for HR<55
gabapentin 600 mg Tablet
600 mg PO HS
Referrals:
Lina Cabrera MD [Family Provider, Family Practice]
Interventions
Interventions:
*Risk Screen - Suicide Last Done: 06/25/25 12:08
*General Assessment Last Done: 06/25/25 12:08
*Neglect/Abuse Screening Last Done: 06/25/25 13:02
*ED- Fall Risk Assessment Last Done: 06/25/25 13:00
*ED COVID-19 Vaccine History Last Done: 06/25/25 13:00
*ED Influenza Vaccine History Last Done: 06/25/25 13:00
ED-Musculoskeletal Assessment Last Done: 06/25/25 13:00
ED- Neurological Assessment Last Done: 06/25/25 13:00
ED-Skin Assessment Last Done: 06/25/25 13:00
Discharge Date and Time
Print Language: LAO
[2025-06-25] MEDS: PERCOCET 5/325 1 TABLET PO ×3 (13:35→22:00)
--- NOTE | 2025-06-25 16:29 | CM ---
functional manager reviewed patient's chart and met with patient and patient was admitted from home after a fall, per patient she fell about a week and this morning was unable to get out of bed. Patient states she lives alone in a 2 story farmhouse with
one step to enter, patient is independent with adl's and uses a cane or walker with ambulation, patient has a hospital bed in home, case planner spoke with physical therapy and they state that they are unable to get patient up patient even had
difficulty with a bed roll per physical therapy, plan follow with patient progress and after some treatment /pain management, case planner will reviewed skilled options with patient.
PCP: Dr. Cabrera
Pharmacy: [facility].
[2025-06-25 16:35] LABS: Hematocrit 38.4 % (37.0-47.0); Hemoglobin 12.7 g/dL (12.0-16.0); Mean Corp Hgb Conc. 33.1 g/dL (33.0-37.0); Mean Corpuscular Volume 90.1 fL (81.0-99.0); Nucleated Red Blood Cells % 0 %; Platelet Count 162 10^3/uL (130-400); Red Cell Dist. Width 14.6 % (11.5-14.5)
[2025-06-25 16:54] LABS: ALT (SGPT) 17 U/L (0-35); AST (SGOT) 22 U/L (14-36); Albumin 3.4 g/dl (3.5-5.0); Alkaline Phosphatase 88 U/L (38-126); Blood Urea Nitrogen 20 mg/dl (7-17); Calcium 8.7 mg/dl (8.4-10.2); Carbon Dioxide 27 mmol/L (22-30); Chloride 104 mmol/L (98-107); Estimated Creatinine Clearance 57 ml/min; Glucose 151 mg/dl (70-99); Potassium 4.0 mmol/L (3.5-5.1); Sodium 131 mmol/L (135-145); Total Protein 6.4 g/dl (6.3-8.2); eGFR > 60.00
--- NOTE | 2025-06-25 16:59 | HPS.HSE ---
Addendum entered and electronically signed by Azalea Rizzo MD 06/25/25 19:03:
This is an addendum to H&P written by Ashlie Corona on 06/25/2025. �Patient seen and examined independently with ACCOUNTING TUTOR.
84-year-old female past medical history of sacral insufficiency fracture/L5 fracture, spinal stenosis, metastatic ovarian cancer status post hysterectomy and chemotherapy, left hydro nephrosis/hydroureter secondary to malignant obstruction, anemia,
hypertension, hyperlipidemia, pulmonary embolism on Eliquis, hiatal hernia, cholelithiasis, presenting with upper chest pain and rib pain after a fall 1 week ago. �Pain is in left lower rib region and upper back.
Vital signs unremarkable.
Labs show sodium 131.
CT chest shows fracture through the T7 vertebral body. �No evidence of rib fracture. �No pneumothorax. �Moderate to large hiatal hernia/partially intrathoracic stomach. �There is 1.9 cm ground glass opacity in the apical portion of the left upper
lobe. �In the visualized upper abdomen moderate left pelvicalyceal dilatation which appears new since prior CT abdomen pelvis.
Patient with T7 vertebral fracture. �Patient with significant pain not improved with Percocet. �She was refusing morphine. �Lidocaine patch. �PT saw patient recommending SNF.
Original Note:
Family Physician
-
Family Physician: Lina Cabrera MD
Chief Complaint
-
rib cage pain
History of Present Illness
84-year-old female with history of metastatic ovarian cancer, A-fib and PE on Eliquis, anemia, hyperlipidemia, hypertension, chronic low back pain and arthritis presenting to the emergency department with upper chest and rib pain after a fall a week
ago. patient got out of bed, walked to the commode with her walker and all of a sudden her walked went underneath her and she fell backwards. she fell on her back. denied hitting head on the floor. patient stated feeling lightheaded before the fall.
she managed to get up by herself from the floor. she was doing good until yesterday, when she was pushing the walker on the steps and she pushed harder on the walker and she started feeling the pain under her ribcage and upper back. she took Tylenol
and went to bed. today morning she was not able to get up from the bed due to pain. she stated excruciating pain with exertion. Denies any fever,chills, chest pain, sob. denied KHAN, dizzy or syncope. denied abdominal pain,,v,d. denied dysuria or
hematuria.
CT with Fracture through the T7 vertebral body as well as the posterior elements at the junction of T7 and T8. No convincing evidence for retropulsed bony fragment.
patient received oxycodone. admitting for further management.
Medical History
Past Medical History
Past Medical History: Reports Other
Additional Past Medical History:
Right fallopian tube cancer, hypertension, polyneuropathy, osteoarthritis, SVT, hypercholesterolemia, PE, Raynaud's phenomenon, chronic venous insufficiency, PAC, lumbar radiculopathy, colon polyps, asthma, COPD, hypothyroidism
Past Surgical History: Reports Other
Additional Past Surgical History:
Tonsillectomy and adenoidectomy, scoliosis surgery, ovarian cancer removed on left ovary
Social History
Tobacco: Non-smoker
Alcohol: None
Drug: None
Personal: Single
Living: Alone
Family History
Family History: Not pertinent
Allergies / Home Medications
Allergies reflects when Allergies were last updated in [email or web address].
Home Medications with original date entered in [email or web address]
Allergy/Medication List:
Allergies
Allergy/AdvReac Type Severity Reaction Status Date / Time
No Known Allergies Allergy Verified 06/25/25 12:12
Home Medications
apixaban 5 mg tablet (Eliquis) 5 mg PO BID Blood Clot Prevention/Tx 10/07/24
atenolol 25 mg tablet 25 mg PO DAILY Blood Pressure 10/07/24
atorvastatin 10 mg tablet 10 mg PO DAILY High Cholesterol 10/07/24
calcium 600 mg (as carbonate)-vitamin D3 5 mcg (200 unit) tablet 1 tab PO DAILY Supplement 10/07/24
gabapentin 100 mg capsule 200 mg PO DAILY Neurological Condition 10/07/24
multivitamin 1 tab PO DAILY Supplement 10/07/24
pyridoxine (vitamin B6) 50 mg capsule (Vitamin B-6) 50 mg PO DAILY Supplement 10/07/24
acetaminophen 500 mg tablet (Tylenol Extra Strength) 1,000 mg (2 x 500 mg) PO Q8H 7 days #42 tabs 10/11/24
cyanocobalamin (vitamin B-12) 1,000 mcg tablet 1,000 mcg PO DAILY #30 tabs 10/11/24
digoxin 125 mcg (0.125 mg) tablet 125 mcg PO QMWF Heart Failure #0 tabs 10/11/24
gabapentin 600 mg tablet 600 mg PO HS 06/25/25
Review of Systems
-
Constitutional: Reports No Symptoms
EENT: Reports No Symptoms
Respiratory: Reports No Symptoms
Cardiac: Reports No Symptoms
Abdomen/GI: Reports No Symptoms
: Reports No Symptoms
Musculoskeletal: Reports Other (ribs pain)
Skin: Reports No Symptoms
Neurological: Reports No Symptoms
Endocrine: Reports No Symptoms
Hematologic/Lymphatic: Reports No Symptoms
Psych: Reports No Symptoms
Physical Exam
Vital Signs
Vital Signs
Temp Pulse Resp BP Pulse Ox
98.2 F 77 17 120/71 97
06/25/25 12:08 06/25/25 16:00 06/25/25 16:00 06/25/25 16:00 06/25/25 13:27
Physical Exam
General: Well Developed, Well Nourished and No Apparent Distress
HEENT: NormoCephalic, Moist mucous membranes and Atraumatic
Respiratory: Clear
Cardiac: S1/S2 and Regular Rhythm; No Murmur or Rub
GI: Soft, Non Tender, Non Distended and Normal Bowel Sounds; No Organomegaly
Rectal: Deferred by Provider
Musculoskeletal: No Clubbing, No Cyanosis and No Edema
Skin: No Rash
Neuro: AO x 3 and Nonfocal/grossly intact
Psych: Calm
Laboratory Results
-
06/25/25 16:27
06/25/25 16:27
Laboratory Results
Total Bilirubin 1.0 mg/dl (0.2-1.3) 06/25/25 16:27
AST 22 U/L (14-36) 06/25/25 16:27
ALT 17 U/L (0-35) 06/25/25 16:27
Alkaline Phosphatase 88 U/L (38-126) 06/25/25 16:27
Data Reviewed
-
CT Scan: Report Reviewed by me
Lab Data: Labs Reviewed by me
Impression/Plan
-
# Bilateral upper rib pain and thoracic back pain secondary to fall
#Fracture through the T7 vertebral body as well as the posterior elements at the junction of T7 and T8
- Patient evaluated by PT recommended SNF
- Tylenol, lidocaine patch
- Percocet as needed moderate pain
-Dilaudid prn for severe pain
- Case management consulted for SNF
-obtain orthostatics
- Chest CT with fusion in the thoracic spine which is likely postsurgical. No convincing evidence for retropulsed bony fragment.No definite evidence for rib fracture. Fracture through the T7 vertebral body as well as the posterior elements at the
junction of T7 and T8No evidence of pneumothorax.Moderate to large hiatal hernia/partially intrathoracic stomach. Adjacent compressive atelectasis.1.9 cm groundglass opacity in the apical portion of the left upper lobe of the lung. Recommend
follow-up CT scan in 6 months.In the visualized upper abdomen, moderate left pelvicalyceal dilation which appears new since CT of the abdomen and pelvis of November 20, 2021. As warranted, consider further evaluation with CT of the abdomen and pelvis,
probably best performed with intravenous contrast if there are no contraindications.Cholelithiasis.
# Hyponatremia likely SIADH
- Sodium 131
-fluids restriction
-BMP in am
# Metastatic ovarian cancer. She follows up with Dr. Molina at [facility]
-Urgently diagnosed in 2021 had hysterectomy and 6 cycles of chemo. She was deemed 'cancer free' in 2022. Recurrence December 2023, chemotherapy and radiation were started. Last chemotherapy was in August 2024.
-follow up with oncology as outpatient
# hypertension-continue atenolol
# Hyperlipidemia-continue statin
# History of PE-continue Eliquis
#paroxysmal atrial fib
-obtain EKG
-dig, atenolol and eliquis continued
#neuropathy
-gabapentin continued
# Hiatal hernia
# Cholelithiasis
# DVT prophylaxis-Eliquis
# DNR per patient preference
[2025-06-25] MEDS: ELIQUIS 5 MG PO (22:00)
[2025-06-25] MEDS: LANOXIN 125 MCG PO (23:15)
[2025-06-26] MEDS: DILAUDID 0.5 MG IV ×2 (01:19→07:36)
[2025-06-26] MEDS: TYLENOL 1000 MG PO ×4 (01:28→21:39)
[2025-06-26 01:30] VITALS: BMI 24.2
[2025-06-26 01:41] VITALS: BP 164/96
--- NOTE | 2025-06-26 02:11 | PTCARENOTE ---
Received pt from ER alert oriented,tolerated transfer fairly well,c/o mid back pain.Physical assessment preformed,pt needs assistance with turning.VS stable afebrile.After assessment pt medicated with Dilaudid,with + relief. Close observation
ongoing throughout the night.
[2025-06-26] MEDS: ELIQUIS 5 MG PO ×2 (07:37→20:39)
[2025-06-26] MEDS: VITAMIN B-12 1000 MCG PO (07:38)
[2025-06-26] MEDS: NEURONTIN 200 MG PO (07:38)
[2025-06-26 08:18] VITALS: BP 132/81
--- NOTE | 2025-06-26 08:51 | W.PN.HOSP.TC ---
Today's Communication/Plan
-
see bold
Assessment / Plan
Assessment / Plan
HPI: 84-year-old female past medical history of sacral insufficiency fracture/L5 fracture, spinal stenosis, metastatic ovarian cancer status post hysterectomy and chemotherapy, left hydro nephrosis/hydroureter secondary to malignant obstruction,
anemia, hypertension, hyperlipidemia, pulmonary embolism on Eliquis, hiatal hernia, cholelithiasis, presenting with upper chest pain and rib pain after a fall 1 week ago. �Pain is in left lower rib region and upper back. CT chest shows fracture
through the T7 vertebral body. �No evidence of rib fracture. �No pneumothorax. �Moderate to large hiatal hernia/partially intrathoracic stomach. �There is 1.9 cm ground glass opacity in the apical portion of the left upper lobe. �In the visualized
upper abdomen moderate left pelvicalyceal dilatation which appears new since prior CT abdomen pelvis.
Patient with T7 vertebral fracture. �Patient with significant pain not improved with Percocet. �She was refusing morphine. �Lidocaine patch. �PT saw patient recommending SNF.
#Bilateral upper rib pain and thoracic back pain secondary to fall
#Fracture through the T7 vertebral body as well as the posterior elements at the junction of T7 and T8
Continue lidocaine patch, Tylenol, Percocet, IV Dilaudid as needed
Add prednisone 40 mg daily D1/5
PT rec SNF, Case management on board
#Hyponatremia likely SIADH
Resolved with fluid restriction, will loosen fluid restriction
# Metastatic ovarian cancer. She follows up with Dr. Molina at [facility]
Urgently diagnosed in 2021 had hysterectomy and 6 cycles of chemo. She was deemed 'cancer free' in 2022.
Recurrence December 2023, chemotherapy and radiation were started. Last chemotherapy was in August 2024.
Follow up with oncology as outpatient
#Hypertension
continue atenolol
#Hyperlipidemia
continue statin
#History of PE
continue Eliquis
#paroxysmal atrial fib
EKG shows atrial fibrillation with PVCs
continue dig, atenolol and eliquis continued
#neuropathy
gabapentin continued
#Hiatal hernia
# Cholelithiasis
DVT prophylaxis-Eliquis
DNR confirmed upon admission
Updated friend at bedside
Total time spent to see the patient on the floor, examine the patient, review data and lab results, discuss treatment plan with patient, nursing staff around 51 minutes.
Physical Exam
General: No acute distress
HEENT: Normocephalic, Atraumatic, EOMI, MMM
Respiratory: Clear to Auscultation bilaterally
Cardiac: Normal S1/S2, Regular Rate and Rhythm
Chest wall: Lower anterior ribs are tender to palpation bilaterally
GI: Soft, Nondistended, Normal Bowel Sounds
Extremities: No Clubbing, Cyanosis, or Edema
Neuro: Nonfocal/Grossly Intact
Anticipated Discharge: 24 - 48 hours
Subjective/Interval History
-
Date of Service: June 26, 2025
Patient complains of severe anterior bilateral rib pain, 10 out of 10 in intensity. Her pain resolved with IV Dilaudid. She is now nauseous, and quite upset. No fever, no vomiting.
Objective Data
-
Labs:
Laboratory Results
06/26/25
06:00
WBC Pending
Hgb Pending
Hct Pending
Plt Count Pending
Sodium Pending
Potassium Pending
Chloride Pending
Carbon Dioxide Pending
BUN Pending
Creatinine Pending
Glucose Pending
Calcium Pending
Vital Signs:
Vital Signs
Temp Pulse Resp BP Pulse Ox
97.7 F 90 16 132/81 96
06/26/25 08:18 06/26/25 08:18 06/26/25 08:18 06/26/25 08:18 06/26/25 08:18
[2025-06-26 09:21] VITALS: BP 164/92
[2025-06-26 09:36] LABS: Hematocrit 39.8 % (37.0-47.0); Hemoglobin 13.3 g/dL (12.0-16.0); Mean Corp Hgb Conc. 33.4 g/dL (33.0-37.0); Mean Corpuscular Volume 91.9 fL (81.0-99.0); Platelet Count 180 10^3/uL (130-400); Red Cell Dist. Width 14.6 % (11.5-14.5)
[2025-06-26] MEDS: OSCAL 500 + D 500 MG PO (10:21)
[2025-06-26] MEDS: LIPITOR 10 MG PO (10:22)
[2025-06-26] MEDS: LIDOCAINE 4% PATCH 1 PATCH TOPICAL (10:22)
[2025-06-26] MEDS: DELTASONE 40 MG PO (10:22)
[2025-06-26] MEDS: TENORMIN 25 MG PO (10:24)
[2025-06-26] MEDS: MIRALAX 17 GRAMS PO (10:25)
[2025-06-26 11:29] LABS: Blood Urea Nitrogen 18 mg/dl (7-17); Calcium 8.6 mg/dl (8.4-10.2); Carbon Dioxide 25 mmol/L (22-30); Chloride 104 mmol/L (98-107); Estimated Creatinine Clearance 67 ml/min; Glucose 115 mg/dl (70-99); Potassium 4.4 mmol/L (3.5-5.1); Sodium 135 mmol/L (135-145); eGFR > 60.00
[2025-06-26] MEDS: ZOFRAN 4 MG IV (12:52)
[2025-06-26 14:44] VITALS: BP 132/84
--- NOTE | 2025-06-26 15:28 | CM ---
CM reviewed chart, patient seen bedside.
CM discussed therapy recommendation of SNF- patient requesting referrals to [facility] form verbally reviewed, provided with copy, placed in chart.
Patient will require insurance auth once bed found.
CM will continue to follow.
Plan; SNF pending accepting facility, will require auth
[2025-06-26] MEDS: ROXICODONE 10 MG PO (16:45)
[2025-06-26] MEDS: SENOKOT-S PO (20:38)
[2025-06-26] MEDS: NEURONTIN 600 MG PO (21:38)
[2025-06-26 23:01] VITALS: BP 144/69
--- NOTE | 2025-06-27 02:20 | DOWNTIME ---
There was a [employer]ouble Shooting Mechanic Downtime on 06/27/2025 from 0100 to 06/27/2025 at 0215. Downtime documentation of patient's care, including medication administrations, has been reconciled in the electronic record per guidelines. Refer to the
patient's paper chart under the miscellaneous tab to see printed paper medication records and downtime forms.
[2025-06-27] MEDS: TYLENOL 1000 MG PO ×2 (06:23→12:14)
[2025-06-27 07:15] VITALS: BP 101/63
[2025-06-27] MEDS: NEURONTIN 200 MG PO (08:08)
[2025-06-27] MEDS: SENOKOT-S 2 TABLET PO (08:08)
[2025-06-27] MEDS: ELIQUIS 5 MG PO (08:09)
[2025-06-27] MEDS: MIRALAX 17 GRAMS PO (08:09)
[2025-06-27] MEDS: VITAMIN B-12 1000 MCG PO (08:10)
[2025-06-27] MEDS: LIPITOR 10 MG PO (08:10)
[2025-06-27] MEDS: LIDOCAINE 4% PATCH 1 PATCH TOPICAL (08:10)
[2025-06-27] MEDS: TENORMIN 25 MG PO (08:10)
[2025-06-27 08:30] LABS: ALT (SGPT) 13 U/L (0-35); AST (SGOT) 16 U/L (14-36); Albumin 3.2 g/dl (3.5-5.0); Alkaline Phosphatase 91 U/L (38-126); Blood Urea Nitrogen 18 mg/dl (7-17); Calcium 8.8 mg/dl (8.4-10.2); Carbon Dioxide 28 mmol/L (22-30); Chloride 105 mmol/L (98-107); Estimated Creatinine Clearance 57 ml/min; Glucose 99 mg/dl (70-99); Magnesium 1.9 mg/dl (1.6-2.3); Potassium 4.9 mmol/L (3.5-5.1); Sodium 137 mmol/L (135-145); Total Protein 5.9 g/dl (6.3-8.2); eGFR > 60.00
--- NOTE | 2025-06-27 08:54 | W.PN.HOSP.TC ---
Today's Communication/Plan
-
Discharge to short-term rehab today
Assessment / Plan
Assessment / Plan
HPI: 84-year-old female past medical history of sacral insufficiency fracture/L5 fracture, spinal stenosis, metastatic ovarian cancer status post hysterectomy and chemotherapy, left hydro nephrosis/hydroureter secondary to malignant obstruction,
anemia, hypertension, hyperlipidemia, pulmonary embolism on Eliquis, hiatal hernia, cholelithiasis, presenting with upper chest pain and rib pain after a fall 1 week ago. �Pain is in left lower rib region and upper back. CT chest shows fracture
through the T7 vertebral body. �No evidence of rib fracture. �No pneumothorax. �Moderate to large hiatal hernia/partially intrathoracic stomach. �There is 1.9 cm ground glass opacity in the apical portion of the left upper lobe. �In the visualized
upper abdomen moderate left pelvicalyceal dilatation which appears new since prior CT abdomen pelvis.
Patient with T7 vertebral fracture. �Patient with significant pain not improved with Percocet. �She was refusing morphine. �Lidocaine patch. �PT saw patient recommending SNF.
#Bilateral upper rib pain and thoracic back pain secondary to fall
#Fracture through the T7 vertebral body as well as the posterior elements at the junction of T7 and T8
Patient's pain is well-controlled on oxycodone 10 mg as needed
Continue prednisone 40 mg daily for total 5 days
Medically stable for discharge to short-term rehab today
#Hyponatremia likely SIADH
Resolved with fluid restriction, will loosen fluid restriction
# Metastatic ovarian cancer. She follows up with Dr. Molina at [facility]
Urgently diagnosed in 2021 had hysterectomy and 6 cycles of chemo. She was deemed 'cancer free' in 2022.
Recurrence December 2023, chemotherapy and radiation were started. Last chemotherapy was in August 2024.
Follow up with oncology as outpatient
#Hypertension
continue atenolol
#Hyperlipidemia
continue statin
#History of PE
continue Eliquis
#paroxysmal atrial fib
EKG shows atrial fibrillation with PVCs
continue dig, atenolol and eliquis continued
#neuropathy
gabapentin continued
#Hiatal hernia
# Cholelithiasis
DVT prophylaxis-Eliquis
DNR confirmed upon admission
Updated friend at bedside 06/26
Physical Exam
General: No acute distress
HEENT: Normocephalic, Atraumatic, EOMI, MMM
Respiratory: Clear to Auscultation bilaterally
Cardiac: Normal S1/S2, Regular Rate and Rhythm
Chest wall: Lower anterior ribs are tender to palpation bilaterally
GI: Soft, Nondistended, Normal Bowel Sounds
Extremities: No Clubbing, Cyanosis, or Edema
Neuro: Nonfocal/Grossly Intact
Anticipated Discharge: Today
Subjective/Interval History
-
Date of Service: June 27, 2025
Nausea and vomiting resolved. Patient's pain is well-controlled with oxycodone 10 mg. She denies chest pain. No fever.
Objective Data
-
Labs:
Laboratory Results
06/27/25
07:20
Sodium 137
Potassium 4.9
Chloride 105
Carbon Dioxide 28
BUN 18 H
Creatinine 0.7
Glucose 99
Calcium 8.8
Total Bilirubin 0.4
AST 16
ALT 13
Alkaline Phosphatase 91
Vital Signs:
Vital Signs
Temp Pulse Resp BP Pulse Ox
98.3 F 77 18 101/63 96
06/27/25 07:15 06/27/25 08:10 06/27/25 07:15 06/27/25 08:10 06/27/25 07:15
I&O
06/26/25 06/27/25 06/28/25
06:59 06:59 06:59
Intake Total 480 / 480
Output Total 1000 / 1000
Balance -520 / -520
[2025-06-27] MEDS: DELTASONE 40 MG PO (08:56)
[2025-06-27 11:14] VITALS: BP 115/67; BP 122/79; BP 125/76; PULSE 104; PULSE 93; PULSE 97
[2025-06-27 11:15] VITALS: BP 115/67; BP 121/79; BP 125/76; PULSE 104; PULSE 90; PULSE 93; O2SAT 95
[2025-06-27 12:47] VITALS: BP 115/67; PULSE 87; O2SAT 94
--- NOTE | 2025-06-27 13:27 | CM ---
CM reviewed chart, patient seen with friend.
[facility] able to offer bed, patient agreeable, auth approved via [facility]- 06/27-07/02 NRD 07/02, auth #[id number], call for updates [phone].
Ambulance auth [id number]
Wendy at [facility] updated.
CM will continue to follow.
Plan; [facility] SNF, ambulance transport
[facility]
Report: [phone]
--- NOTE | 2025-06-27 14:06 | W.DCSUMMARY ---
Discharge Summary
Discharge Data
Date of Admission: 06/25/25
Date of Discharge: 06/27/25
-
Pending Results: No
Hospital Course
Discharge diagnosis:
Bilateral upper rib pain and thoracic back pain secondary to fall
Fracture through the thoracic 7 vertebral body as well as the posterior elements at the junction of thoracic 7 and thoracic 8
Acute hyponatremia, likely from syndrome of inappropriate antidiuretic hormone secretion
Metastatic ovarian cancer
Hypertension
Hyperlipidemia
History of pulmonary embolism
Paroxysmal atrial fibrillation
Neuropathy
Hiatal hernia
CT chest:
Fusion in the thoracic spine which is likely postsurgical.
Fracture through the T7 vertebral body as well as the posterior elements at the junction of T7 and T8. No convincing evidence for retropulsed bony fragment.
No definite evidence for rib fracture. No evidence of pneumothorax.
Moderate to large hiatal hernia/partially intrathoracic stomach. Adjacent compressive atelectasis.
1.9 cm groundglass opacity in the apical portion of the left upper lobe of the lung. Recommend follow-up CT scan in 6 months.
In the visualized upper abdomen, moderate left pelvicalyceal dilation which appears new since CT of the abdomen and pelvis of November 20, 2021. As warranted, consider further evaluation with CT of the abdomen and pelvis, probably best performed with
intravenous contrast if there are no contraindications.
Cholelithiasis.
Hospital course:
84-year-old female past medical history of sacral insufficiency fracture/L5 fracture, spinal stenosis, metastatic ovarian cancer status post hysterectomy and chemotherapy, left hydro nephrosis/hydroureter secondary to malignant obstruction, anemia,
hypertension, hyperlipidemia, pulmonary embolism on Eliquis, hiatal hernia, and cholelithiasis, presented with upper chest pain and rib pain after a fall 1 week ago. She had a chest CT, which showed a fracture through the thoracic 7 vertebral body.
There were no rib fractures. She received treatment with Tylenol, lidocaine patches, and opioids. She was also started on prednisone 40 mg daily for 5 days. By the following day, her pain improved. It was controlled on oxycodone 10 mg as
needed. She is medically stable for discharge to short-term rehab. She can continue prednisone 40 mg daily for total 5 days, and take oxycodone 10 mg as needed. She needs to follow-up with her PCP 1 week after she leaves rehab.
Disposition: Short-term rehab
Discharge planning: Required 34 minutes
Discharge Plan
-
Patient Disposition: [facility]NF
Discharge Diagnosis/Procedures: Bilateral upper rib pain and thoracic back pain secondary to fall
Fracture through the T7 vertebral body as well as the posterior elements at the junction of T7 and T8
Hyponatremia
Metastatic ovarian cancer
Condition: Good
Diet: Low Fat and Low Cholesterol
Activity: As tolerated
Activity Restrictions/Additional Instructions:
Take prednisone 40 mg daily for 3 more days.
Follow-up with your PCP 1 week after you leave rehab.
Referrals:
Lina Cabrera MD [Family Provider, Family Practice] - in one week
Prescriptions:
New
polyethylene glycol 3350 17 gram Powder In Packet
17 g PO DAILY Qty: 0 0RF
prednisone 20 mg Tablet
40 mg PO DAILY 3 Days Qty: 0 0RF
sennosides-docusate sodium [Senna Plus] 8.6-50 mg Tablet
2 tab PO BID Qty: 0 0RF
oxycodone 5 mg Tablet
10 mg PO Q4HPRN PRN (Reason: severe pain) Qty: 6 0RF
Continued
multivitamin Tablet
1 tab PO DAILY
atorvastatin 10 mg Tablet
10 mg PO DAILY
atenolol 25 mg Tablet
25 mg PO DAILY
calcium carbonate-vitamin D3 600 mg-5 mcg (200 unit) Tablet
1 tab PO DAILY
gabapentin 100 mg Capsule
200 mg PO DAILY
Vitamin B-6 50 mg Capsule
50 mg PO DAILY
Eliquis 5 mg Tablet
5 mg PO BID
acetaminophen [Tylenol Extra Strength] 500 mg Tablet
1,000 mg PO Q8H 7 Days Qty: 42 0RF
cyanocobalamin (vitamin B-12) 1,000 mcg Tablet
1,000 mcg PO DAILY Qty: 30 0RF
digoxin 125 mcg (0.125 mg) Tablet
125 mcg PO QMWF Qty: 0 0RF
Rx Instructions:
Hold for HR<55
gabapentin 600 mg Tablet
600 mg PO HS
Discharge Orders:
Discharge Patient (As Directed); Ordered 06/27/25
Ordered By: Serafin Ramos
Discharge Date and Time
Discharge Date/Time: 06/27/25 17:09
Print Language: FRISIAN
[2025-06-27 15:06] VITALS: BP 105/58
[2025-06-27] MEDS: ROXICODONE 10 MG PO (16:16)
== END 2025-06-27 17:09 ==
LOC: 1 ACUTE 18:10
PROVIDERS: Registered Nurse; ADMITTING PHYSICIAN Hospitalist; ATTENDING PHYSICIAN Family Medicine; EMERGENCY PHYSICIAN Student in an Organized Health Care Education/Training Program; FAMILY PHYSICIAN Family Medicine
DX: S22.069A Unspecified fracture of T7-T8 vertebra, initial encounter for closed fracture (principal); E87.1 Hypo-osmolality and hyponatremia; C56.9 Malignant neoplasm of unspecified ovary; C79.60 Secondary malignant neoplasm of unspecified ovary; I10 Essential (primary) hypertension; Z86.711 Personal history of pulmonary embolism; I48.0 Paroxysmal atrial fibrillation; G62.9 Polyneuropathy, unspecified; Z66 Do not resuscitate; D64.9 Anemia, unspecified; G89.29 Other chronic pain; Z79.01 Long term (current) use of anticoagulants; W18.30XA Fall on same level, unspecified, initial encounter; K44.0 Diaphragmatic hernia with obstruction, without gangrene
CPT/HCPCS: 71250; 80048; 80053; 82248; 83735; 85025; 85027; 93005; 97167; 97530; 99285; G0378

== ENCOUNTER → 2025-07-05 10:48 | Outpatient (REF) | payer OTHER, SELFPAY ==
[2025-07-05 12:12] LABS: Blood Urea Nitrogen 20 mg/dl (7-17); Calcium 8.4 mg/dl (8.4-10.2); Carbon Dioxide 33 mmol/L (22-30); Chloride 99 mmol/L (98-107); Glucose 93 mg/dl (70-99); Potassium 4.5 mmol/L (3.5-5.1); Sodium 132 mmol/L (135-145); eGFR > 60.00
== END ==
LOC: OLABP 10:48
PROVIDERS: ATTENDING PHYSICIAN Family Medicine
DX: S22.069D Unspecified fracture of T7-T8 vertebra, subsequent encounter for fracture with routine healing (principal); C57.01 Malignant neoplasm of right fallopian tube; D64.9 Anemia, unspecified; E78.00 Pure hypercholesterolemia, unspecified; G62.0 Drug-induced polyneuropathy
CPT/HCPCS: 36415; 80048

== ENCOUNTER → 2025-07-09 11:21 | Outpatient (REF) | payer OTHER, SELFPAY ==
[2025-07-09 12:57] LABS: Blood Urea Nitrogen 13 mg/dl (7-17); Calcium 8.4 mg/dl (8.4-10.2); Carbon Dioxide 32 mmol/L (22-30); Chloride 101 mmol/L (98-107); Glucose 85 mg/dl (70-99); Potassium 4.5 mmol/L (3.5-5.1); Sodium 133 mmol/L (135-145); eGFR > 60.00
== END ==
LOC: OLABP 11:21
PROVIDERS: ATTENDING PHYSICIAN Family Medicine
DX: I10 Essential (primary) hypertension (principal); M17.0 Bilateral primary osteoarthritis of knee; Z86.711 Personal history of pulmonary embolism; M54.6 Pain in thoracic spine; S22.069D Unspecified fracture of T7-T8 vertebra, subsequent encounter for fracture with routine healing; C57.01 Malignant neoplasm of right fallopian tube; D64.9 Anemia, unspecified; E78.00 Pure hypercholesterolemia, unspecified; G62.0 Drug-induced polyneuropathy; I44.0 Atrioventricular block, first degree; I47.10 Supraventricular tachycardia, unspecified; I49.1 Atrial premature depolarization; I49.3 Ventricular premature depolarization; I73.00 Raynaud's syndrome without gangrene; I87.2 Venous insufficiency (chronic) (peripheral)
CPT/HCPCS: 36415; 80048

== ENCOUNTER → 2025-07-17 09:29 | Outpatient (REF) | payer OTHER, SELFPAY ==
[2025-07-17 10:31] LABS: Hematocrit 34.1 % (37.0-47.0); Hemoglobin 10.3 g/dL (12.0-16.0); Mean Corp Hgb Conc. 30.2 g/dL (33.0-37.0); Mean Corpuscular Volume 99.4 fL (81.0-99.0); Nucleated Red Blood Cells % 0 %; Platelet Count 163 10^3/uL (130-400); Red Cell Dist. Width 15.7 % (11.5-14.5)
[2025-07-17 11:00] LABS: ALT (SGPT) 15 U/L (0-35); AST (SGOT) 15 U/L (14-36); Albumin 2.9 g/dl (3.5-5.0); Alkaline Phosphatase 110 U/L (38-126); Blood Urea Nitrogen 13 mg/dl (7-17); Calcium 8.7 mg/dl (8.4-10.2); Carbon Dioxide 32 mmol/L (22-30); Chloride 102 mmol/L (98-107); Glucose 83 mg/dl (70-99); Potassium 4.4 mmol/L (3.5-5.1); Sodium 134 mmol/L (135-145); Total Protein 5.4 g/dl (6.3-8.2); eGFR > 60.00
== END ==
LOC: REG 09:29
PROVIDERS: ATTENDING PHYSICIAN Family Medicine
DX: S22.069D Unspecified fracture of T7-T8 vertebra, subsequent encounter for fracture with routine healing (principal); C57.01 Malignant neoplasm of right fallopian tube; D64.9 Anemia, unspecified; E78.00 Pure hypercholesterolemia, unspecified; G62.0 Drug-induced polyneuropathy; I10 Essential (primary) hypertension; I44.0 Atrioventricular block, first degree; I47.10 Supraventricular tachycardia, unspecified; I49.1 Atrial premature depolarization; I49.3 Ventricular premature depolarization; I73.00 Raynaud's syndrome without gangrene; I87.2 Venous insufficiency (chronic) (peripheral); M17.0 Bilateral primary osteoarthritis of knee; M54.6 Pain in thoracic spine
CPT/HCPCS: 36415; 80053; 85025

== ENCOUNTER → 2025-07-23 10:00 | Outpatient (REF) | payer OTHER, SELFPAY ==
[2025-07-23 12:59] LABS: Hematocrit 36.7 % (37.0-47.0); Hemoglobin 11.1 g/dL (12.0-16.0); Mean Corp Hgb Conc. 30.2 g/dL (33.0-37.0); Mean Corpuscular Volume 99.2 fL (81.0-99.0); Nucleated Red Blood Cells % 0 %; Platelet Count 223 10^3/uL (130-400); Red Cell Dist. Width 15.6 % (11.5-14.5)
[2025-07-23 13:14] LABS: ALT (SGPT) 14 U/L (0-35); AST (SGOT) 18 U/L (14-36); Albumin 3.3 g/dl (3.5-5.0); Alkaline Phosphatase 106 U/L (38-126); Blood Urea Nitrogen 13 mg/dl (7-17); Calcium 8.9 mg/dl (8.4-10.2); Carbon Dioxide 35 mmol/L (22-30); Chloride 101 mmol/L (98-107); Glucose 84 mg/dl (70-99); Potassium 4.1 mmol/L (3.5-5.1); Sodium 136 mmol/L (135-145); Total Protein 5.9 g/dl (6.3-8.2); eGFR > 60.00
== END ==
LOC: OLABP 10:00
PROVIDERS: ATTENDING PHYSICIAN Family Medicine
DX: S22.069D Unspecified fracture of T7-T8 vertebra, subsequent encounter for fracture with routine healing (principal); C57.01 Malignant neoplasm of right fallopian tube; D64.9 Anemia, unspecified; E78.00 Pure hypercholesterolemia, unspecified; G62.0 Drug-induced polyneuropathy; I10 Essential (primary) hypertension; I44.0 Atrioventricular block, first degree; I47.10 Supraventricular tachycardia, unspecified; I49.1 Atrial premature depolarization; I49.3 Ventricular premature depolarization; I73.00 Raynaud's syndrome without gangrene; I87.2 Venous insufficiency (chronic) (peripheral); M17.0 Bilateral primary osteoarthritis of knee; M54.6 Pain in thoracic spine; Z86.711 Personal history of pulmonary embolism
CPT/HCPCS: 36415; 80053; 85025

== ENCOUNTER → 2025-07-27 10:44 | Outpatient (REF) | payer OTHER, SELFPAY ==
[2025-07-27 11:27] LABS: Hematocrit 32.2 % (37.0-47.0); Hemoglobin 10.2 g/dL (12.0-16.0); Mean Corp Hgb Conc. 31.7 g/dL (33.0-37.0); Mean Corpuscular Volume 94.4 fL (81.0-99.0); Nucleated Red Blood Cells % 0 %; Platelet Count 193 10^3/uL (130-400); Red Cell Dist. Width 15.1 % (11.5-14.5)
[2025-07-27 11:33] LABS: Blood Urea Nitrogen 16 mg/dl (7-17); Calcium 8.6 mg/dl (8.4-10.2); Carbon Dioxide 32 mmol/L (22-30); Chloride 103 mmol/L (98-107); Glucose 84 mg/dl (70-99); Potassium 3.9 mmol/L (3.5-5.1); Sodium 136 mmol/L (135-145); eGFR > 60.00
== END ==
LOC: OLABP 10:44
PROVIDERS: ATTENDING PHYSICIAN Family Medicine
DX: S22.069D Unspecified fracture of T7-T8 vertebra, subsequent encounter for fracture with routine healing (principal); C57.01 Malignant neoplasm of right fallopian tube; D64.9 Anemia, unspecified; E78.00 Pure hypercholesterolemia, unspecified; G62.0 Drug-induced polyneuropathy; I10 Essential (primary) hypertension; I44.0 Atrioventricular block, first degree; I47.10 Supraventricular tachycardia, unspecified; I49.1 Atrial premature depolarization; I49.3 Ventricular premature depolarization; I73.00 Raynaud's syndrome without gangrene; I87.2 Venous insufficiency (chronic) (peripheral); M17.0 Bilateral primary osteoarthritis of knee; Z86.711 Personal history of pulmonary embolism; M54.6 Pain in thoracic spine
CPT/HCPCS: 36415; 80048; 85025